=== PATIENT | male | born 1945 | race Caucasian/White ===

== ENCOUNTER → 2016-06-18 | Outpatient (CLI) | payer OTHER ==
--- NOTE | 2016-06-18 18:57 | DX ---
Chest, PA and Lateral History: Cough x10 days, history of aplastic anemia, J06.9 Comparison: January 22, 2016 Findings: Lungs are clear, without infiltrate or consolidation. Heart size is relatively small consis tent with the prominent lung volumes. There is chronic right coronary artery atherosclerotic disease. There is no adenopathy or mass lesion. There is no pleural effusion . There is a stable thoracic kyp hosis with several stable old mild compressions. No new compressions have developed. Impression: No pneumonia. Results called to Dr. Amezcua, as requested at 6:53 p.m.
== END ==
LOC: FIMAGING 18:27
PROVIDERS: ATTEND Internal Medicine
DX: R05 Cough (principal)